=== PATIENT | male | born 1960 | race Asian ===

== ENCOUNTER 2019-09-15 09:35 | Emergency (ER) | payer BC, OTHER ==
[~2019-09-15] VITALS: Ht 162.6 cm; Wt 70.0 kg
[~2019-09-15 09:35] MED LIST: ALLO300T PO; ASPI81TA45 PO; HYDR25TA6 PO; LINA5TAB PO; METF500T17 PO; PANT40TA5 PO; SIMV40TA20 PO
--- NOTE | 2019-09-15 11:05 | NUR ---
PT AMBULATED WITH ARELY MURPHY TO ROOM. STEADY GAIT.
--- NOTE | 2019-09-15 11:07 | NUR ---
PT STATES SOB X3 WEEKS BUT GOT WORSE LAST NIGHT. PT STATES ALSO "COUGHING." DENIES FEVER/CHILLS. DENIES ANY RECENT TRAVEL. PT DENIES BEING AROUND ANYONE POSITIVE FOR COVID.
[2019-09-15] MEDS ORDERED: LOSA50TA14 PO (11:10)
[2019-09-15] MEDS ORDERED: PANT20TA3 PO (11:10)
[2019-09-15 12:13] LABS: BASOPHILS # (AUTO) 0.01 x10^3/uL (0-0.1); BASOPHILS % (AUTO) 0 % (0-1); EOSINOPHILS # (AUTO) 0.01 x10^3/uL (0-0.4); EOSINOPHILS % (AUTO) 0 % (1-7); LYMPHOCYTES # (AUTO) 1.09 x10^3/uL (1-3.4); LYMPHOCYTES % (AUTO) 22 % (22-44); MD NO; MEAN CORPUSCULAR HEMOGLOBIN 20.8 pg (27.5-34.5); MEAN CORPUSCULAR HGB CONC 31.4 g/dL (33.2-36.2); MEAN CORPUSCULAR VOLUME 66.4 fL (81-97); MEAN PLATELET VOLUME 8.3 fL (7.4-10.4); MONOCYTES # (AUTO) 0.23 x10^3/uL (0.2-0.8); MONOCYTES % (AUTO) 5 % (2-9); NEUTROPHILS # (AUTO) 3.73 x10^3/uL (1.8-6.8); NEUTROPHILS % (AUTO) 74 % (42-75); PLATELET COUNT 182 x10^3/uL (130-400); RED BLOOD COUNT 6.29 x10^6/uL (4.38-5.82); RED CELL DISTRIBUTION WIDTH 16.2 % (9.4-14.8)
--- NOTE | 2019-09-15 12:19 | NUR ---
PT RESTING COMFORTABLY WITH EYES CLOSED ON GURNEY. AWAITING RESULTS FROM LABS. RN TO CONTINUE TO MONITOR.
[2019-09-15 12:24] LABS: ALBUMIN 4.3 g/dL (3.4-5.0); ANION GAP 7 mmol/L (5-15); CALCIUM 9.1 mg/dL (8.5-10.1); CHLORIDE 106 mmol/L (98-107); CREATININE 1.01 mg/dL (0.7-1.3)
[2019-09-15 12:28] LABS: TROPONIN I < 0.015 ng/mL (0.000-0.045)
[2019-09-15 13:30] VITALS: BP 127/80
--- NOTE | 2019-09-15 13:30 | NUR ---
PT RESTING ON [facility]. VS OBTAINED. VSS. UP FOR RECHECK BY CONNIE.
--- NOTE | 2019-09-15 13:37 | NUR ---
PT DISCHARGED HOME IN A STABLE CONDITION. DC INSTRUCTIONS WERE DISCUSSED WITH PT. PT VERBALIZED UNDERSTANDING. NO FURTHER QUESTIONS OR CONCERNS WERE EXPRESSED AT THAT TIME. PT AMBULATED WITH RN OUT OF ED. STEADY GAIT. +
== END 2019-09-15 13:40 | disposition home or self-care (01) ==
LOC: ED 11:14
DX: J20.8 Acute bronchitis due to other specified organisms (principal); Z20.828 Contact with and (suspected) exposure to other viral communicable diseases; R06.00 Dyspnea, unspecified; R09.3 Abnormal sputum; R94.31 Abnormal electrocardiogram [ECG] [EKG]
CPT/HCPCS: 36415; 71045; 80048; 82040; 83605; 83880; 84484; 85025; 85379; 87040; 93005; 99285

== ENCOUNTER 2019-10-09 08:13 | Emergency (ER) | payer BC ==
[~2019-10-09] VITALS: Ht 162.6 cm; Wt 68.3 kg
[~2019-10-09 08:13] MED LIST changes: +LOSA50TA14 PO; +PANT20TA3 PO
--- NOTE | 2019-10-09 08:41 | NUR ---
PT HAS CO SOB FOR PAST MONTH. PT WAS SEEN HERE ON SEPTEMBER 14, - COVID X2. PT WAS PLACED ON ABX AND INHALER FOR BRONCHITIS. PT HAS DYSPNEA ON EXERTION AND SIGHT CHEST PRESSURE. PT NOT IN RESP DISTRESS. RESP EVEN AND UNLABORED. RA SAT 97%. PA AT BEDSIDE. POC FOR LABS, CXR.
[2019-10-09] MEDS ORDERED: ASPIRIN 81 MG TABLET CHEW ONE (08:58)
[2019-10-09 09:00] VITALS: BP 141/76
[2019-10-09] MEDS ORDERED: ASPIRIN 81 MG TABLET CHEW PO ONE (09:00)
[2019-10-09] MEDS ORDERED: SODIUM CHLORIDE FLUSH 10ML SYR IVF ONE (09:00)
[2019-10-09 09:01] LABS: BASOPHILS # (AUTO) 0.01 x10^3/uL (0-0.1); BASOPHILS % (AUTO) 0 % (0-1); EOSINOPHILS # (AUTO) 0.08 x10^3/uL (0-0.4); EOSINOPHILS % (AUTO) 2 % (1-7); LYMPHOCYTES # (AUTO) 1.19 x10^3/uL (1-3.4); LYMPHOCYTES % (AUTO) 22 % (22-44); MD NO; MEAN CORPUSCULAR HEMOGLOBIN 20.4 pg (27.5-34.5); MEAN CORPUSCULAR HGB CONC 31.1 g/dL (33.2-36.2); MEAN CORPUSCULAR VOLUME 65.6 fL (81-97); MEAN PLATELET VOLUME 7.8 fL (7.4-10.4); MONOCYTES # (AUTO) 0.26 x10^3/uL (0.2-0.8); MONOCYTES % (AUTO) 5 % (2-9); NEUTROPHILS # (AUTO) 3.76 x10^3/uL (1.8-6.8); NEUTROPHILS % (AUTO) 71 % (42-75); PLATELET COUNT 212 x10^3/uL (130-400); RED BLOOD COUNT 6.15 x10^6/uL (4.38-5.82); RED CELL DISTRIBUTION WIDTH 17.2 % (9.4-14.8)
[2019-10-09 09:11] LABS: ALBUMIN 4.3 g/dL (3.4-5.0); ANION GAP 10 mmol/L (5-15); CALCIUM 8.7 mg/dL (8.5-10.1); CHLORIDE 105 mmol/L (98-107); CREATININE 1.13 mg/dL (0.7-1.3)
[2019-10-09 09:14] LABS: TROPONIN I < 0.015 ng/mL (0.000-0.045)
--- NOTE | 2019-10-09 09:59 | NUR ---
Patient/Caregiver given discharge instructions and they have confirmed that they understand the instructions. Patient ambulatory with steady gait.
== END 2019-10-09 10:01 | disposition home or self-care (01) ==
LOC: ED 08:58
DX: J45.909 Unspecified asthma, uncomplicated (principal); E11.65 Type 2 diabetes mellitus with hyperglycemia; R06.00 Dyspnea, unspecified; I10 Essential (primary) hypertension; E11.9 Type 2 diabetes mellitus without complications; Z87.891 Personal history of nicotine dependence
CPT/HCPCS: 36415; 71045; 80048; 82040; 83880; 84484; 85025; 99284

== ENCOUNTER 2020-03-17 08:46 | Emergency (ER) | payer BC ==
[~2020-03-17] VITALS: Ht 160 cm; Wt 68.4 kg
[~2020-03-17 08:46] MED LIST changes: -PANT20TA3 PO; +PANT20TA4 PO; -PANT40TA5 PO; +PANT40TA6 PO
--- NOTE | 2020-03-17 09:07 | NUR ---
ASSUMED CARE OF PT AT THIS TIME FROM [facility]. AMBULATORY TO ROOM WITH STEADY GAIT. 59 Y/O M PRESENTS STATING "MY LOW BACK HAS BEEN HURTING FOR 4 DAYS, THEN MY STOMACH HURTING NOW TOO, LIKE BLOATED AND CRAMPING. YESTERDAY I HAD DIARRHEA JUST ONCE BUT THIS MORNING WAS NORMAL POOP. LAST SUNDAY I HAD BLACK STOOL JUST ONE TIME NOTHING SINCE, I'M EATING AND DRINKING FINE, NO PROBLEMS GOING PEE." RATES LOW BACK AND ABD PAIN 8/10. R FLANK AND ALL ABD QUADRANTS TENDER TO PALPAPATION. ASSESSMENT COMPLETED. VSS. CONT PULSE OX, BP MONITORS IN PLACE. SIDE RAILS UPX2. FALL PRECAUTIONS IN PLACE. A&OX4. DR. SMITH AT BEDSIDE FOR EVALUATION. AWAITING ORDERS.
--- NOTE | 2020-03-17 09:15 | NUR ---
ADVERTISING SOLICITOR AT BEDSIDE FOR EKG
[2020-03-17] MEDS ORDERED: SODIUM CHLORIDE FLUSH 10ML SYR IVF ONE (09:30)
--- NOTE | 2020-03-17 09:30 | NUR ---
IV PLACED, LABS DRAWN. PT AMBULATED TO RESTROOM WITH STEADY GAIT, CLEAN CATCH UA COLLECTED AND SENT TO LAB. RESTING IN POSITION OF COMFORT, USING OWN CELL PHONE. REFUSES NEED FOR PAIN MEDICATION AT THIS TIME. VSS. CALL LIGHT IN REACH. FALL PRECAUTIONS IN PLACE.
[2020-03-17 09:33] LABS: BASOPHILS % (AUTO) 1 % (0-1); EOSINOPHILS % (AUTO) 0 % (1-7); LYMPHOCYTES % (AUTO) 22 % (22-44); MEAN CORPUSCULAR HEMOGLOBIN 20.1 pg (27.5-34.5); MEAN CORPUSCULAR HGB CONC 32.1 g/dL (33.2-36.2); MEAN PLATELET VOLUME 8.7 fL (7.4-10.4); MONOCYTES % (AUTO) 7 % (2-9); NEUTROPHILS % (AUTO) 70 % (42-75); PLATELET COUNT 131 x10^3/uL (130-400); RED BLOOD COUNT 6.54 x10^6/uL (4.38-5.82); RED CELL DISTRIBUTION WIDTH 15.9 % (9.4-14.8)
[2020-03-17 09:40] LABS: MICROSCOPIC NOT IND
[2020-03-17 09:43] LABS: ALANINE AMINOTRANSFERASE 34 U/L (12-78); ALBUMIN 3.9 g/dL (3.4-5.0); ANION GAP 8 mmol/L (5-15); CALCIUM 8.5 mg/dL (8.5-10.1); CHLORIDE 102 mmol/L (98-107); CREATININE 1.07 mg/dL (0.7-1.3)
[2020-03-17 09:46] LABS: ALKALINE PHOSPHATASE 53 U/L (45-117); BILIRUBIN,TOTAL 0.4 mg/dL (0.2-1.0); TOTAL PROTEIN 8.2 g/dL (6.4-8.2)
--- NOTE | 2020-03-17 09:50 | NUR ---
US AT BEDSIDE
[2020-03-17 10:00] LABS: MD SCAN
--- NOTE | 2020-03-17 10:17 | NUR ---
PT UP FOR RECHECK
--- NOTE | 2020-03-17 10:26 | NUR ---
DR. SMITH AT BEDSIDE FOR RECHECK, DISCUSSING TEST RESULTS AND POC
--- NOTE | 2020-03-17 10:45 | NUR ---
AWAITING CHART AND DISCHARGE PAPERS FROM [facility]
--- NOTE | 2020-03-17 11:00 | NUR ---
SAHRA MURPHY AT BEDSIDE TO ASSIST WITH PT DISCHARGE.
[2020-03-17 11:07] VITALS: BP 117/75
== END 2020-03-17 11:10 | disposition home or self-care (01) ==
LOC: ED 09:04
DX: K85.00 Idiopathic acute pancreatitis without necrosis or infection (principal); R10.84 Generalized abdominal pain; R10.13 Epigastric pain; R19.7 Diarrhea, unspecified; M54.5 Low back pain; E11.9 Type 2 diabetes mellitus without complications
CPT/HCPCS: 36415; 76700; 80053; 81003; 83690; 85025; 93005; 99285

== ENCOUNTER 2020-04-02 16:44 | Emergency (ER) | payer BC ==
[~2020-04-02] VITALS: Ht 162.6 cm; Wt 66.0 kg
[2020-04-02 19:01] VITALS: BP 128/76
--- NOTE | 2020-04-02 19:05 | NUR ---
Patient/Caregiver given discharge instructions and they have confirmed that they understand the instructions. Patient ambulatory with steady gait.
== END 2020-04-02 19:06 | disposition home or self-care (01) ==
LOC: ED 17:14
DX: U07.1 COVID-19 (principal); R94.31 Abnormal electrocardiogram [ECG] [EKG]; E11.9 Type 2 diabetes mellitus without complications
CPT/HCPCS: 71045; 93005; 99283

== ENCOUNTER → 2020-04-23 | Outpatient (CLI) | payer BC | END | disposition home or self-care (01) | LOC: RAD 13:55 | PROVIDERS: ATTEND Internal Medicine | DX: R06.02 Shortness of breath (principal) | CPT/HCPCS: 71046 ==